=== PATIENT | female | born 1980 | race Hispanic/Latino ===

== ENCOUNTER 2021-11-12 13:26 | Emergency (ER) | payer OTHER ==
[~2021-11-12] VITALS: Ht 152.4 cm; Wt 77.1 kg
[2021-11-12] MEDS ORDERED: KETOROLAC 30MG VIAL (30MG/ML) IVP ONE (14:00)
[2021-11-12] MEDS ORDERED: 0.9%NACL 1000ML 1,000 ML IV SCH (14:00)
[2021-11-12] MEDS ORDERED: ONDANSETRON 4MG INJ IVP ONE (14:00)
[2021-11-12 14:10] LABS: APPEARANCE,URINE CLOUDY (CLEAR); BILIRUBIN,URINE NEGATIVE (NEGATIVE); COLOR,URINE YELLOW (YELLOW); GLUCOSE, URINE (UA) NEGATIVE (NEGATIVE); KETONES,URINE 5 mg/dL (NEGATIVE); LEUKOCYTE ESTERASE ,URINE MODERATE (NEGATIVE); NITRATE,URINE NEGATIVE (NEGATIVE); OCCULT BLOOD,URINE TRACE-INTACT (NEGATIVE); PH,URINE 5.5 (5.0-8.0); PROTEIN,URINE TRACE mg/dL (NEGATIVE); UROBILINOGEN,URINE 0.2 mg/dL (0.2-1.0)
[2021-11-12 14:13] LABS: BASOPHILS % (AUTO) 0.6 % (0.0-5.0); EOSINOPHILS % (AUTO) 0.9 % (0.0-8.0); HEMATOCRIT 42.4 % (36-48); LYMPHOCYTES % (AUTO) 22.3 % (21.0-51.0); MEAN CORPUSCULAR HEMOGLOBIN 29.6 pg (27.0-33.0); MEAN CORPUSCULAR HGB CONC 32.5 g/dL (32.0-36.0); MONOCYTES % (AUTO) 7.9 % (3.0-13.0); NEUTROPHILS % (AUTO) 68.1 % (40.0-77.0); PLATELET COUNT (AUTO) 231 K/uL (130-400); RED BLOOD CELL COUNT(AUTO) 4.66 MIL/uL (4.00-5.50); RED CELL DISTRIBUTION WIDTH 12.9 % (11.0-15.5)
[2021-11-12 14:14] LABS: HCG,QUAL RESULT NEGATIVE (NEGATIVE)
[2021-11-12 14:19] LABS: BACTERIA,URINE Moderate /HPF (None Seen); MUCUS,URINE Few LPF (None Seen); SQUAMOUS EPITHELIAL CELL,UR Many /HPF (0-2)
[2021-11-12 14:26] LABS: CREATININE 0.7 mg/dL (0.5-1.5); POTASSIUM 3.4 mmol/L (3.5-5.1)
[2021-11-12 14:31] LABS: ALBUMIN 3.6 g/dL (3.5-5.0); BILIRUBIN,TOTAL 0.7 mg/dL (0.2-1.0); TOTAL PROTEIN, SERUM 8.1 g/dL (6.0-8.3)
[2021-11-12] MEDS ORDERED: CEFTRIAXONE 1G VIAL IVP ONE (15:00)
[2021-11-12 15:46] VITALS: BP 105/83
[2021-11-12] MEDS ORDERED: CEPH500B PO (15:56)
[2021-11-12] MEDS ORDERED: PHEN-847 PO (15:56)
== END 2021-11-12 16:05 | disposition home or self-care (01) ==
LOC: EDH 13:26
DX: N39.0 Urinary tract infection, site not specified (principal); E66.9 Obesity, unspecified; Z68.33 Body mass index [BMI] 33.0-33.9, adult
CPT/HCPCS: 36415; 74176; 80053; 81001; 81025; 85025; 87088; 96374; 96375; 99284; J0696; J1885; J2405; J7030

== ENCOUNTER 2023-11-24 23:19 | Emergency (ER) | payer BC ==
[~2023-11-24] VITALS: Ht 152.4 cm; Wt 81.6 kg
[~2023-11-24 23:19] MED LIST: CEPH500B PO; PHEN-847 PO
[2023-11-24] MEDS: ONDANSETRON 4MG INJ IVP ONE (23:43)
[2023-11-24] MEDS: MORPHINE 2 MG SYG IVP ONE (23:43)
[2023-11-25 01:52] VITALS: BP 142/90; PULSE 89; RESP 20; O2SAT 98
[2023-11-25] MEDS: MORPHINE 2 MG SYG IVP ONE (01:52)
[2023-11-25] MEDS: KETOROLAC 30MG VIAL (30MG/ML) IVP ONE (01:52)
[2023-11-25] MEDS ORDERED: KETO10TA2 PO (02:02)
== END 2023-11-25 02:57 | disposition home or self-care (01) ==
LOC: EDH 23:19
DX: S42.322A Displaced transverse fracture of shaft of humerus, left arm, initial encounter for closed fracture (principal); E66.9 Obesity, unspecified; Z68.35 Body mass index [BMI] 35.0-35.9, adult; W01.10XA Fall on same level from slipping, tripping and stumbling with subsequent striking against unspecified object, initial encounter; Y93.01 Activity, walking, marching and hiking; Y92.89 Other specified places as the place of occurrence of the external cause; Y99.8 Other external cause status
CPT/HCPCS: 99284; 73080; 73060 ×2; 73030; 96374; 29105; 96375; 96376; J2270 ×2; J2405; J1885